=== PATIENT | male | born 1990 | race African-American/Black ===

== ENCOUNTER 2018-03-17 11:12 | Inpatient (IN) | payer SELFPAY ==
[~2018-03-17] VITALS: Ht 177.8 cm; Wt 104.3 kg
[2018-03-17 11:12] VITALS: BP_SYST 122
[2018-03-17] MEDS ORDERED: LIDOCAINE 1% 10 MG/ML, 20 ML MDV INJ ONE (11:30)
[2018-03-17] MEDS ORDERED: BACITRACIN 1 GM OINT TP ONE (11:30)
[2018-03-17] MEDS ORDERED: DIPH-TET-PERTUS Vaccine 0.5 ML VIAL (ADACEL) IM ONE (11:30)
[2018-03-17] MEDS ORDERED: CLINDAMYCIN 600 mg/50mL D5W 50 ML IV ONE (12:15)
[2018-03-17 13:01] LABS: BASOPHILS # (AUTO) 0.2 K/uL (0.0-0.2); BASOPHILS % (AUTO) 1.5 % (0.0-2.0); EOSINOPHILS # (AUTO) 0.1 K/uL (0.0-0.4); EOSINOPHILS % (AUTO) 0.9 % (0.0-4.0); HEMATOCRIT 42.3 % (36-54); HEMOGLOBIN 14.4 g/dL (14.0-18.0); LYMPHOCYTES # (AUTO) 1.3 K/uL (1.0-5.5); LYMPHOCYTES % (AUTO) 10.2 % (20.5-51.5); MEAN CORPUSCULAR HEMOGLOBIN 31 pg (27-31); MEAN CORPUSCULAR HGB CONC 34 % (32-36); MEAN CORPUSCULAR VOLUME 91 fL (79.0-98.0); NEUTROPHILS # (AUTO) 10.1 K/uL (1.8-7.7); NEUTROPHILS % (AUTO) 79.4 % (40.0-70.0); PLATELET COUNT (AUTO) 271 K/uL (130-430); RED BLOOD CELL COUNT(AUTO) 4.65 MIL/uL (4.2-6.2); RED CELL DISTRIBUTION WIDTH 12.7 % (9.0-15.0); WHITE BLOOD COUNT (AUTO) 12.7 K/uL (4.8-10.8)
[2018-03-17 13:42] LABS: CALCIUM 9.3 mg/dL (8.4-11.0); CREATININE 0.79 mg/dL (0.55-1.30); POTASSIUM 3.6 mmol/L (3.5-5.1)
[2018-03-17 13:45] LABS: TOTAL BILIRUBIN 1.1 mg/dL (0.0-1.0)
[2018-03-17] MEDS ORDERED: cefTRIAXone 2 GM in D5W 50 ML IV ONE (13:45)
[2018-03-17 14:09] VITALS: BP_SYST 139
[2018-03-17] MEDS ORDERED: VANCOMYCIN HCL 1,750 MG in NS 500 ML IV SCH (15:00)
[2018-03-17] MEDS ORDERED: MORPHINE 2 MG/ML INJ. SYRINGE IVP PRN (16:15)
[2018-03-17] MEDS ORDERED: MORPHINE 4 MG/ML INJ. SYRINGE IVP PRN (16:15)
[2018-03-17 17:42] VITALS: BP_SYST 117
[2018-03-17] MEDS: ACETAMINOPHEN 325 MG TABLET PO PRN (17:56)
[2018-03-17 20:36] VITALS: BP_SYST 145
[2018-03-17] MEDS: VANCOMYCIN HCL 1,500 MG in NS 250 ML IV SCH (22:46)
[2018-03-18 00:52] VITALS: BP_SYST 123
[2018-03-18] MEDS: VANCOMYCIN HCL 1,500 MG in NS 250 ML IV SCH ×2 (06:10→17:07)
[2018-03-18 06:49] LABS: ALBUMIN 3.7 g/dL (3.4-4.8); CALCIUM 9.4 mg/dL (8.4-11.0); CREATININE 0.93 mg/dL (0.55-1.30); POTASSIUM 3.8 mmol/L (3.5-5.1)
[2018-03-18 08:57] VITALS: BP_SYST 144
[2018-03-18] MEDS ORDERED: cefTRIAXone 2 GM in D5W 50 ML IV SCH (09:00)
[2018-03-18 12:00] VITALS: BP_SYST 139
[2018-03-18 13:31] LABS: BILIRUBIN,URINE 2+ (NEGATIVE); CLARITY/URINE CLEAR (CLEAR); COLOR,URINE YELLOW (YELLOW); GLUCOSE,URINE NEGATIVE (NEGATIVE); KETONES,URINE 2+ (NEGATIVE); LEUKOCYTE ESTERASE ,URINE NEGATIVE (NEGATIVE); NITRITE, URINE NEGATIVE (NEGATIVE); PROTEIN URINE 1+ (NEGATIVE)
[2018-03-18 13:35] LABS: BLOOD, URINE TRACE (NEGATIVE); UROBILINOGEN,URINE >=8 (0.2-1.0)
[2018-03-18 13:53] LABS: BARBITURATE, URINE NEGATIVE (NEG <=200); BENZODIAZEPINE, URINE NEGATIVE (NEG <=150); CANNABINOID, URINE POSITIVE (NEG <=50); COCAINE, URINE NEGATIVE (NEG <=150); METHAMPHETAMINES SCREEN,URINE NEGATIVE (NEG <=500); OPIATE, URINE POSITIVE (NEG <=100); PHENCYCLIDINE SCREEN,URINE NEGATIVE (NEG <=25); UR TRICYCLIC ANTIDEPRESSANTS NEGATIVE (NEG <=300); URINE AMPHETAMINE NEGATIVE (NEG <=500); URINE METHADONE NEGATIVE (NEG <=200); URINE OXYCODONE SCREEN NEGATIVE (NEG <=100); URINE PROPOXYPHENE SCREEN NEGATIVE (NEG <=300)
[2018-03-18 13:54] LABS: BACTERIA,URINE FEW /HPF (None Seen); WBC,URINE 0-3 /HPF (0-3)
[2018-03-18 13:55] LABS: MUCUS,URINE None Seen /LPF (None Seen); YEAST,URINE None Seen /HPF (None Seen)
[2018-03-18] MEDS ORDERED: LIDOCAINE/EPI 1% 1:100000 20 ML VIAL INJ ONE (14:45)
[2018-03-18] MEDS ORDERED: PROPOFOL 200MG/ 20ML VIAL (DIPRIVAN) IV ONE (14:45)
[2018-03-18] MEDS ORDERED: fentaNYL CITRATE/PF 100 MCG/2 ML AMP IVP ONE (14:45)
[2018-03-18] MEDS ORDERED: MIDAZOLAM HCL 5 MG/5 ML VIAL IVP ONE (14:45)
[2018-03-18] MEDS ORDERED: NS 1000 ML IV.SOLN IV ONE (14:45)
[2018-03-18] MEDS ORDERED: ONDANSETRON HCL 4 MG/2 ML VIAL IVP PRN (15:30)
[2018-03-18] MEDS ORDERED: fentaNYL CITRATE/PF 100 MCG/2 ML AMP IVP PRN ×2 (15:30)
[2018-03-18 16:00] VITALS: BP_SYST 133
[2018-03-18 16:15] VITALS: BP_SYST 138
[2018-03-18] MEDS: ACETAMINOPHEN 325 MG TABLET PO PRN (17:07)
[2018-03-18] MEDS ORDERED: HYDR-4272 PO (17:10)
[2018-03-18 17:12] VITALS: BP_SYST 138
[2018-03-18] MEDS ORDERED: CLIN300C11 PO (17:12)
== END 2018-03-18 17:30 | disposition home or self-care (01) | DRG 581 ==
LOC: SED 11:12 → SMU 13:30
PROVIDERS: ADMIT Internal Medicine Hospice and Palliative Medicine; ATTEND Internal Medicine Hospice and Palliative Medicine
PROC: 0J980ZZ Drainage of Abdomen Subcutaneous Tissue and Fascia, Open Approach (ICD-10-PCS; principal; 2018-03-18 13:00)
DX: L03.311 Cellulitis of abdominal wall (principal); L02.211 Cutaneous abscess of abdominal wall; F32.9 Major depressive disorder, single episode, unspecified; F17.210 Nicotine dependence, cigarettes, uncomplicated; F12.90 Cannabis use, unspecified, uncomplicated
CPT/HCPCS: 36415; 80053; 80307; 81000-TC; 83605; 85025; 86140; 87040-TC; 87070-TC; 87075-TC; 87081; 87186-TC; 96365; 99285; J0696; J2250; J2270; J2704; J3010; J3370; J3490; J7030; J7040; J7050; J7060

== ENCOUNTER 2018-06-18 13:49 | Emergency (ER) | payer MEDICAID ==
[~2018-06-18] VITALS: Ht 177.8 cm; Wt 115.7 kg
[~2018-06-18 13:49] MED LIST: CLIN300C11 PO; HYDR-4272 PO
[2018-06-18 13:57] VITALS: BP_SYST 154
--- NOTE | 2018-06-18 14:58 | NUR ---
Pt placed in bed 8
--- NOTE | 2018-06-18 15:00 | NUR ---
ER DAVID Ulloa examining patient.
--- NOTE | 2018-06-18 15:05 | NUR ---
Pt complains of bump to lower abdomen for the past 2 days with brown discharge. Denies n/v or fever. No other injuries/complaints per pt or noted.
[2018-06-18] MEDS ORDERED: SODIUM BICARBONATE 8.4% VIAL 50 MEQ/50 ML VIAL INJ ONE (15:15)
[2018-06-18] MEDS ORDERED: LIDOCAINE/PRILOCAINE 5 GM CREAM (EMLA) TP ONE (15:15)
[2018-06-18] MEDS ORDERED: SULFAMETHOXAZOLE/TRIMETHOPR DS 1 TABLET PO ONE (15:15)
[2018-06-18] MEDS ORDERED: DIPHENHYDRAMINE INJ 50 MG/ML VIAL IVP ONE (15:15)
[2018-06-18] MEDS ORDERED: LIDOCAINE/EPI 2% 1:100000 20 ML VIAL INJ ONE (15:15)
[2018-06-18] MEDS ORDERED: CEPHALEXIN 500 MG CAPSULE PO ONE (15:15)
[2018-06-18] MEDS ORDERED: fentaNYL CITRATE/PF 100 MCG/2 ML AMP IVP ONE (15:15)
--- NOTE | 2018-06-18 15:57 | NUR ---
[place] of care received at this time, Laila [employer] MEMBER at bedside for I&D, pt on stable condition.
[2018-06-18 16:18] VITALS: BP_SYST 148
--- NOTE | 2018-06-18 16:21 | NUR ---
Patient given written and verbal discharge instructions and verbalizes understanding. ER MD discussed with patient the results and treatment provided. Patient in stable condition. ID arm band removed. IV catheter removed intact and dressing applied, no active bleeding. Rx of Mupirocin,Keflex,Bactrim,Tramadol,Motrin given. Patient educated on pain management and to follow up with PMD. Pain Scale 4/10 tolerable for patient. Opportunity for questions provided and answered. Medication side effect fact sheet provided.
== END 2018-06-18 16:21 | disposition home or self-care (01) ==
LOC: SED 13:49
DX: L02.211 Cutaneous abscess of abdominal wall (principal)
CPT/HCPCS: 10060; 96372; 96374; 96375; 99283; J1200; J3010

== ENCOUNTER 2018-06-22 22:59 | Emergency (ER) | payer MEDICAID ==
[~2018-06-22] VITALS: Ht 177.8 cm; Wt 116.1 kg
[2018-06-22 23:46] VITALS: BP_SYST 110
--- NOTE | 2018-06-23 00:12 | NUR ---
Note ashwinone in EDM - 06/23/18 at 0114 by [email or web address] Patient given written and verbal discharge instructions and verbalizes understanding. ER discussed with patient the results and treatment provided. Patient in stable condition. ID arm band removed. Rx of Zofran given. Patient educated on pain management and to follow up with PMD. Pain Scale 3/10, tolerable. Opportunity for questions provided and answered. Medication side effect fact sheet provided.
--- NOTE | 2018-06-23 00:18 | NUR ---
Patient to ER bed 5 to gown for evaluation. Side rails up. Report given to SARA Diaz.
--- NOTE | 2018-06-23 00:20 | NUR ---
Patient AOx4, ambulatory, presents to ER for wound check. Patient states abcess to suprapubic area since 06/18/18 and packed at that time. Patient states he has been taking 2 ABT that were prescribed and make him "very nauseous". Patient states no drainage, no foul odor to site, and no episodes of chills or fever. No other symptoms or complaints.
--- NOTE | 2018-06-23 00:35 | NUR ---
Dr. Gibson at bedside, packing removed from wound. Wound measures approx. 1.5 cm, longitudinal, gaping.
[2018-06-23 01:12] VITALS: BP_SYST 110
--- NOTE | 2018-06-23 01:12 | NUR ---
Patient given written and verbal discharge instructions and verbalizes understanding. ER MD discussed with patient the results and treatment provided. Patient in stable condition. ID arm band removed. Rx of Zofran given. Patient educated on pain management and to follow up with PMD. Pain Scale 3/10, tolerable. Opportunity for questions provided and answered. Medication side effect fact sheet provided.
== END 2018-06-23 01:12 | disposition home or self-care (01) ==
LOC: SED 22:59
DX: Z48.01 Encounter for change or removal of surgical wound dressing (principal)
CPT/HCPCS: 99283

== ENCOUNTER 2019-06-30 20:04 | Emergency (ER) | payer MEDICAID ==
[~2019-06-30] VITALS: Ht 177.8 cm; Wt 108.9 kg
[2019-06-30 20:12] VITALS: BP_SYST 129
--- NOTE | 2019-06-30 22:40 | NUR ---
Pt ambulatory to bed 3 for evaluation
--- NOTE | 2019-06-30 23:00 | NUR ---
ER at bedside examining patient.
--- NOTE | 2019-06-30 23:10 | NUR ---
Pt brought to ed by girlfriend. Pt awake, alert, oriented x4. Pt states that he has a painful abscess on the R side of the groin. Pt states that he has had abcess going for approximately 2 weeks, and he squuezed it a few days ago when pus and blood drained out into his hand. Pt states that he has pain and drainage. Pt denies chest pain, nausea, vomiting, diarrhea, shortness of breath. pt denies any other medical complaint at this time. Pt resting in ED bed, no acute distress. VSS
[2019-06-30] MEDS ORDERED: LIDOCAINE 2%, 20 ML MDV INJ ONE (23:15)
--- NOTE | 2019-06-30 23:50 | NUR ---
bedside performing drainage of abcess to R groin. Purulent drainage noted, wound packed with Iodaform guaze.
[2019-07-01] MEDS ORDERED: MORPHINE 2 MG/ML INJ. SYRINGE IM ONE
[2019-07-01 00:40] VITALS: BP_SYST 128
--- NOTE | 2019-07-01 00:40 | NUR ---
Patient given written and verbal discharge instructions and verbalizes understanding. ER MD discussed with patient the results and treatment provided. Patient in stable condition. ID arm band removed. no IV Rx of Bactrim, tramadol, keflex, motrin given. Patient educated on pain management and to follow up with PMD. Pain Scale 0/10. Opportunity for questions provided and answered. Medication side effect fact sheet provided.
== END 2019-07-01 00:40 | disposition home or self-care (01) ==
LOC: SED 20:04
DX: L02.214 Cutaneous abscess of groin (principal)
CPT/HCPCS: 10060; 96372; 99283; J2001; J2270